=== PATIENT | female | born 1955 | race Caucasian/White ===

== ENCOUNTER 2016-10-28 14:06 | Emergency (ER) | payer OTHER, MEDICAID ==
[~2016-10-28] VITALS: Ht 154.9 cm; Wt 49.9 kg
--- NOTE | 2016-10-28 14:06 | NUR ---
Patient FLOR POTTER from [facility] ([facility]), transferred to bed 8. RN evaluating patient at bedside.
[2016-10-28 14:08] VITALS: BP 102/72
[2016-10-28] MEDS ORDERED: FLUO10TA4 PO (14:34)
[2016-10-28] MEDS ORDERED: CEP30L PO (14:34)
[2016-10-28] MEDS ORDERED: CARB1TER PO (14:34)
[2016-10-28] MEDS ORDERED: MULT-1023 PO (14:34)
[2016-10-28] MEDS ORDERED: DOCU-2 PO (14:34)
[2016-10-28] MEDS ORDERED: ONDA4ODT2 GT (14:34)
[2016-10-28] MEDS ORDERED: TRAM50TA3 PO (14:34)
[2016-10-28] MEDS ORDERED: LISI10TA2 PO (14:34)
[2016-10-28] MEDS ORDERED: FAMO20CT GT (14:34)
[2016-10-28] MEDS ORDERED: KEP500L GT (14:34)
[2016-10-28] MEDS ORDERED: CLON0.1T46 PO (14:34)
[2016-10-28] MEDS ORDERED: [UNRECOGNIZED DRUG - CODE] PO (14:34)
[2016-10-28] MEDS ORDERED: AMLO5TAB1 PO (14:34)
[2016-10-28] MEDS ORDERED: IMO2 PO (14:34)
[2016-10-28] MEDS ORDERED: [UNRECOGNIZED DRUG - CODE] PO (14:34)
[2016-10-28] MEDS ORDERED: ACET-2619 PO (14:34)
[2016-10-28] MEDS ORDERED: [UNRECOGNIZED DRUG - CODE] PO (14:34)
[2016-10-28] MEDS ORDERED: ATOR20TA PO (14:34)
[2016-10-28] MEDS ORDERED: GABA-638 PO (14:34)
[2016-10-28] MEDS ORDERED: METO50TA69 PO (14:34)
[2016-10-28] MEDS ORDERED: CLOP75TA5 PO (14:34)
[2016-10-28] MEDS ORDERED: LANTUS SQ (14:34)
[2016-10-28] MEDS ORDERED: LIDO5TDM3 TD (14:34)
[2016-10-28] MEDS ORDERED: ACET-2208 PO (14:34)
--- NOTE | 2016-10-28 14:43 | NUR ---
PT TAKEN TO CT VIA KO ACCOMPANIED BY COURT CRIER
--- NOTE | 2016-10-28 14:54 | NUR ---
Patient returned from CT scan.
--- NOTE | 2016-10-28 15:39 | NUR ---
60/F BIBA FROM [facility]. EMS STATES PT FELL FROM W/C TO FLOOR AT 12.00 TODAY. PATIENT HAS CONTUSSION R FRONTAL & ABRASION R FORARM; DENIES LOC. HX OF HTN ,STROKE WEAK R SIDE ,DIABETES,ANEMIA, G TUBE AT ABDOMEN. PT NON VERBAL ORIENTD ONLY HER NAME. PT ACT NEAUROLOGIACAL BASE LINE. LUNGS CLEAR BL; HR EVEN AND REGULAR; PATIENT STATES PAIN OF 0/10 AT THIS TIME; VSS; PATIENT POSITIONED FOR COMFORT; HOB ELEVATED; BEDRAILS UP X2; BED DOWN. ER MD MADE AWARE OF PT STATUS.
--- NOTE | 2016-10-28 15:39 | NUR ---
Note undone in EDM - 10/29/16 at 0711 by [email or web address] 60/F FLOR FROM [facility]. EMS STATES PT FELL FROM W/C TO FLOOR AT 12.00 TODAY. PATIENT HAS CONTUSSION R FRONTAL & ABRASION R FORARM; DENIES LOC. HX OF HTN ,STROKE WEAK R SIDE ,DIABETES,ANEMIA. PT NON VERBALORIENTD ONLY HER NAME. PT ACT NEAUROLOGIACAL BASE LINE. LUNGS CLEAR BL; HR EVEN AND REGULAR; PATIENT STATES PAIN OF 0/10 AT THIS TIME; VSS; PATIENT POSITIONED FOR COMFORT; HOB ELEVATED; BEDRAILS UP X2; BED DOWN. ER MD MADE AWARE OF PT STATUS.
[2016-10-28 15:57] VITALS: BP 111/65
--- NOTE | 2016-10-28 15:57 | NUR ---
Patient discharged with v/s stable. Written and verbal after care instructions given and explained. Patient verbalized understanding. Ambulance Transport with to intermediate. All questions addressed prior to discharge. Advised to follow up with PMD.
== END 2016-10-28 15:57 | disposition home or self-care (01) ==
LOC: MED 14:06
DX: S00.83XA Contusion of other part of head, initial encounter (principal); E11.9 Type 2 diabetes mellitus without complications; I10 Essential (primary) hypertension; Z86.73 Personal history of transient ischemic attack (TIA), and cerebral infarction without residual deficits; Z79.4 Long term (current) use of insulin; Z79.899 Other long term (current) drug therapy; Z88.0 Allergy status to penicillin; Z98.890 Other specified postprocedural states; W07.XXXA Fall from chair, initial encounter; Y93.89 Activity, other specified; Y92.89 Other specified places as the place of occurrence of the external cause; Y99.8 Other external cause status
CPT/HCPCS: 70450; 82948; 99284